=== PATIENT | female | born 1985 | race African-American/Black ===

== ENCOUNTER 2016-07-19 11:06 | Emergency (ER) | payer OTHER ==
[2016-07-19 11:19] VITALS: BP 101/69; PULSE 68; TEMP 97.6; BMI 20.7
[2016-07-19] MEDS ORDERED: IBUPROFEN 400 MG TABLET (FP) PO ONE ×2 (11:55→11:57)
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
== END 2016-07-19 12:08 | disposition home or self-care (01) ==
LOC: JERFT 11:06
DX: S09.8XXA Other specified injuries of head, initial encounter (principal); V43.62XA Car passenger injured in collision with other type car in traffic accident, initial encounter; Y92.414 Local residential or business street as the place of occurrence of the external cause; Y99.8 Other external cause status
CPT/HCPCS: 99281-25